=== PATIENT | female | born 1990 | race African-American/Black ===

== ENCOUNTER 2017-01-20 10:00 | Emergency (ER) | payer OTHER ==
[~2017-01-20] VITALS: Ht 170.2 cm; Wt 60.8 kg
[2017-01-20 10:04] VITALS: BP 142/80
--- NOTE | 2017-01-20 10:19 | NUR ---
PT PRESENTS TO ER W/C/O CHEST PAIN X1 DAY.HX OF HEART MURMUR.PT STATES SHE FEELS NAUSEOUS BUT DENIES VOMITTING; SKIN IS PINK/WARM/DRY; AAOX4 WITH EVEN AND STEADY GAIT; LUNGS CLEAR BL; HR EVEN AND REGULAR; PT DENIES ANY FEVER OR COUGH AT THIS TIME; PATIENT STATES PAIN OF 4/10 AT THIS TIME;EKG DONE;PATIENT POSITIONED FOR COMFORT; HOB ELEVATED; BEDRAILS UP X2; BED DOWN.ALL MONITORS IN PLACED;DR WALL AT BEDSIDE.
--- NOTE | 2017-01-20 10:27 | NUR ---
PT UNABLE TO GIVE URINE AT THIS TIME.
--- NOTE | 2017-01-20 10:30 | NUR ---
XRAY AT BEDSIDE.
--- NOTE | 2017-01-20 10:37 | NUR ---
LAB AT BEDSIDE.
[2017-01-20 10:58] LABS: BASOPHILS # (AUTO) 0.3 K/uL (0.00-0.22); BASOPHILS % (AUTO) 3.7 % (0.0-2.0); EOSINOPHILS # (AUTO) 0.1 K/uL (0-0.4); EOSINOPHILS % (AUTO) 0.6 % (0.0-4.0); HEMATOCRIT 41.8 % (36-48); HEMOGLOBIN 13.4 g/dL (12.0-16.0); LYMPHOCYTES # (AUTO) 1.6 K/uL (2.5-16.5); MEAN CORPUSCULAR HEMOGLOBIN 27 pg (27-31); MEAN CORPUSCULAR HGB CONC 32 g/dL (33-37); MEAN CORPUSCULAR VOLUME 85 fL (80-94); MONOCYTES # (AUTO) 0.7 K/uL (0.8-1.0); MONOCYTES % (AUTO) 8.1 % (1.7-9.3); NEUTROPHILS # (AUTO) 5.9 K/uL (1.8-7.7); NEUTROPHILS % (AUTO) 69.6 % (42.2-75.2); PLATELET COUNT (AUTO) 370 K/uL (140-450); RED BLOOD CELL COUNT(AUTO) 4.95 MIL/uL (4.20-5.40); RED CELL DISTRIBUTION WIDTH 13.6 % (11.6-13.7); WHITE BLOOD COUNT (AUTO) 8.6 K/uL (4.8-10.8)
[2017-01-20 11:02] LABS: CREATININE 0.8 mg/dL (0.6-1.3)
[2017-01-20 11:08] LABS: ALBUMIN 3.6 g/dL (3.4-5.0); TOTAL BILIRUBIN 1.3 mg/dL (0.0-1.0)
[2017-01-20 11:19] LABS: PROTHROMBIN TIME 11.2 secs (10.8-13.4)
[2017-01-20 11:42] VITALS: BP 130/80
== END 2017-01-20 11:41 | disposition home or self-care (01) ==
LOC: MED 10:00
DX: R07.89 Other chest pain (principal); R42 Dizziness and giddiness
CPT/HCPCS: 36415; 71010; 80053; 81025; 83880; 84484; 85025; 85610; 85730; 93005; 99285; Q0092

== ENCOUNTER 2017-03-30 11:03 | Inpatient (IN) | payer OTHER ==
[~2017-03-30] VITALS: Ht 170.2 cm; Wt 59.9 kg
--- NOTE | 2017-03-30 11:14 | NUR ---
Patient ambulated to bed 3. RN evaluating patient at bedside.
[2017-03-30 11:16] VITALS: BP 144/84
--- NOTE | 2017-03-30 11:20 | NUR ---
27F BIB SELF C/O VAGINAL BLEEDING, PINK, BRIGHT, PT STATES "ONLY WHEN I WIPE" X 3 DAYS; PT STATES NO CLOTTS, AND NOT HAVING TO USE TAMPONS DAILY AT THIS TIME; M2 A1; PT STATES NO PAIN, NO N/V/D AT THIS TIME; PT AA&OX4, BL LUNG SOUNDS CLEAR, RR EVEN/UNLABORED, SKIN IS WARM/DRY/INTACT WITH EVEN AND STEADY GAIT; PT RESTING IN BED WITH HOB ELEVATED AND IN LOWEST POSITION; POSITIONED FOR COMFORT; ER MD MADE AWARE OF STATUS. WILL CONTINUE TO MONITOR.
--- NOTE | 2017-03-30 11:40 | NUR ---
Dr. Cope evaluating patient at bedside.
--- NOTE | 2017-03-30 11:40 | NUR ---
YELENA BRYANT ACCOMPANIED ER MD DR. MAXWELL FOR FEMALE PELVIC EXAM
--- NOTE | 2017-03-30 11:44 | NUR ---
Patient taken to US via wheelchair by tech.
--- NOTE | 2017-03-30 12:03 | NUR ---
Patient returned from US. RN re-evaluating patient at bedside.
[2017-03-30 12:04] LABS: APPEARANCE,URINE HAZY (CLEAR); BILIRUBIN,URINE NEGATIVE (NEGATIVE); BLOOD, URINE 1+ (NEGATIVE); COLOR,URINE YELLOW (YELLOW); LEUKOCYTE ESTERASE ,URINE NEGATIVE (NEGATIVE); NITRITE, URINE NEGATIVE (NEGATIVE); PH,URINE 6.5 (5.0-9.0); UGLUCOSE NEGATIVE (NEGATIVE)
--- NOTE | 2017-03-30 12:18 | NUR ---
PHLEB at bedside for blood draw.
[2017-03-30 12:23] LABS: RBC,URINE 11-20 (MOD) /HPF (0-5); WBC,URINE 0-5 (RARE) /HPF (0-5)
[2017-03-30 12:42] LABS: BASOPHILS # (AUTO) 0.3 K/uL (0.00-0.22); BASOPHILS % (AUTO) 3.3 % (0.0-2.0); EOSINOPHILS # (AUTO) 0.1 K/uL (0-0.4); EOSINOPHILS % (AUTO) 1.1 % (0.0-4.0); HEMATOCRIT 39.7 % (36-48); HEMOGLOBIN 12.7 g/dL (12.0-16.0); LYMPHOCYTES # (AUTO) 1.1 K/uL (2.5-16.5); LYMPHOCYTES % (AUTO) 13.8 % (20.5-51.1); MEAN CORPUSCULAR HEMOGLOBIN 27 pg (27-31); MEAN CORPUSCULAR HGB CONC 32 g/dL (33-37); MEAN CORPUSCULAR VOLUME 85 fL (80-94); MONOCYTES # (AUTO) 0.7 K/uL (0.8-1.0); MONOCYTES % (AUTO) 8.5 % (1.7-9.3); NEUTROPHILS # (AUTO) 5.7 K/uL (1.8-7.7); NEUTROPHILS % (AUTO) 73.3 % (42.2-75.2); PLATELET COUNT (AUTO) 360 K/uL (140-450); RED BLOOD CELL COUNT(AUTO) 4.66 MIL/uL (4.20-5.40); RED CELL DISTRIBUTION WIDTH 13.5 % (11.6-13.7); WHITE BLOOD COUNT (AUTO) 7.9 K/uL (4.8-10.8)
--- NOTE | 2017-03-30 13:17 | NUR ---
PT APPEARS TO BE RESTING COMFORTABLY IN BED; RR EVEN/UNLABORED; POSITIONED FOR COMFORT; WILL CONTINUE TO MONITOR.
--- NOTE | 2017-03-30 14:06 | NUR ---
PT HR 53, RR EVEN/UNLABORED; ER MD DR. MAXWELL NOTIFIED; POSITIONED FOR COMFORT; WILL CONTINUE TO MONITOR.
[2017-03-30] MEDS ORDERED: ACETAMINOPHEN 325 MG TAB PO PRN (15:05)
[2017-03-30] MEDS ORDERED: MORPHINE SULFATE 2 MG/ML SYR IVP PRN (15:05)
[2017-03-30] MEDS ORDERED: ONDANSETRON 4 MG/2 ML VIAL IVP PRN (15:05)
--- NOTE | 2017-03-30 15:34 | NUR ---
Patient will be admitted to care of DR. ORTEZ. Admited to M/S. Will go to room 104B. Belongings list completed. Report to YELENA VALDERRAMA AND YELENA MARIE AT BEDSIDE.
[2017-03-30 15:50] VITALS: BP 105/50
--- NOTE | 2017-03-30 15:50 | NUR ---
RECEIVED REPORT FROM ER NURSE. PT DX: ABDOMINAL PAIN/VAGINAL BLEEDING, PINK, BRIGHT, "ONLY WHEN I WIPE" X3 DAYS. NO CLOTS. HX: OVERIAN CYST RIGHT OVARY. G6, P2, M2, A1. ADMITTED TO RULE OUT WHAT IS CAUSING PELVIC PAIN AND POSSIBILITY OF ECTOPIC . NKA AND NPO AT THIS TIME. AOX4. PT IS ABLE TO AMBULATE AND HAS INTACT SKIN. PT STABLE AND RESTING IN BED. VITAL SIGNS 97.9F, 76 HR, 105/50 B/P, 16RR, 100% SPO2 AND 6/10 PAIN LEVEL. BED IN LOWEST POSITION. CALL LIGHT WITHIN REACH. WILL CONTINUE TO MONITOR.
--- NOTE | 2017-03-30 16:05 | NUR ---
PT WAS GIVEN SANITARY PADS AND UNDERWEAR TO CONTROL BLEEDING. PT WAS ABLE TO CARE FOR SELF WITHOUT ASSISTANCE.
[2017-03-30] MEDS: NACL 0.9% 1,000 ML IV SCH (16:30)
--- NOTE | 2017-03-30 17:23 | NUR ---
PAGED DR. ORTEZ FOR ADMIT ORDERS. DR. WALKER STATE APPELLATE CLERK, PER DR. WALKER ORDER CONSULT WITH LABOR RELATIONS TEACHER.
--- NOTE | 2017-03-30 17:32 | NUR ---
CALLED DR. BA TO ASK HIM IF IT WAS OKAY FOR THE PATIENT TO HAVE DINNER. PER DR. BA PATIENT IS OKAY TO HAVE REGULAR DIET.
--- NOTE | 2017-03-30 17:35 | NUR ---
LEFT MESSAGE AT DIETARY FOR A REGULAR DIET TRAY. MEANWHILE PT RECEIVED TUNA SANDWICH, JELLO AND CRANBERRY JUICE.
--- NOTE | 2017-03-30 17:50 | NUR ---
PT RECEIVED REGULAR DIET TRY. PT STABLE AT THIS TIME. NO S/S OF RESPIRATORY DISTRESS OR DISCOMFORT. CALL LIGHT WITHIN REACH. BED IN LOWEST POSITION. WILL CONTINUE TO MONITOR.
--- NOTE | 2017-03-30 18:21 | NUR ---
CALLED DR. BA TO NOTIFY AND CONFIRM THAT HE WAS NOW THE ATTENDING DOCTOR.
--- NOTE | 2017-03-30 19:25 | NUR ---
PT ENDORSED TO SLOT FLOOR PERSON NURSE. PT STABLE AT THIS TIME. NO S/S OF RESPIRATORY DISTRESS OR DISCOMFORT. CALL LIGHT WITHIN REACH. BED IN LOWEST POSITION.
--- NOTE | 2017-03-30 19:26 | NUR ---
PATIENT IS CURRENTLY RESTING IN BED AWAKE ALERT ORIENTED. DENIES PAIN MODERATE AMOUNT OF BLEEDING NOTED TO HER PERIPAD.IVF INFUSING WELL IV SITE PATENT. CALL LIGHT WITHIN REACH WILL CONTINUE TO MONITOR.
[2017-03-30 20:00] VITALS: BP 102/52
--- NOTE | 2017-03-30 20:00 | NUR ---
Patient's Plan of Care was discussed and reviewed with MALLORY: JUAREZ
--- NOTE | 2017-03-30 21:15 | NUR ---
PATIENT IS CURRENTLY AWAKE WATCHING MOVIES ON HER PHONE.NEEDS MET.IVF INFUSING WELL.CALL LIGHT WITHIN REACH.
--- NOTE | 2017-03-30 21:55 | NUR ---
MD SMITH CAME AND SPOKE TO THE PATIENT AT BEDSIDE AND ANSWERED ALL OF HER QUESTIONS AND CONCERNS.
[2017-03-30] MEDS ORDERED: ZOLPIDEM 5 MG TAB PO PRN (22:25)
--- NOTE | 2017-03-30 23:47 | NUR ---
PATIENT COMPLAINS OF INSOMNIA WAS MEDICATED WITH SLEEPING PILL.
--- NOTE | 2017-03-30 23:49 | NUR ---
PATIENT WILL BE NPO AFTER MIDNIGHT SHE WILL BE HAVING A D&C PROCEDURE TOMORROW BY MD SMITH AND SHE KNOWS THAT SHE CANNOT DRINK OR EAT AFTER MIDNIGHT.
--- NOTE | 2017-03-30 23:58 | NUR ---
GAVE THE PATIENT A BLANKET.
[2017-03-31] MEDS: NACL 0.9% 1,000 ML IV SCH ×2 (01:02→03:55)
--- NOTE | 2017-03-31 01:35 | NUR ---
PATIENT IS CURRENTLY STABLE SLEEPING IN BED AT THIS TIME.NO SCD'S APPLIED PATIENT IS AMBULATORY AND AMBULATES WELL.
--- NOTE | 2017-03-31 03:00 | NUR ---
PATIENT IS CURRENTLY RESTING IN BED SLEEPING CALL LIGHT WITHIN REACH.
[2017-03-31 04:55] VITALS: BP 101/52
--- NOTE | 2017-03-31 04:57 | NUR ---
PATIENT IS CURRENTLY RESTING IN BED SLEEPING NEEDS MET WILL CONTINUE TO MONITOR.
[2017-03-31 06:13] LABS: HEMATOCRIT 37.8 % (36-48); HEMOGLOBIN 12.4 g/dL (12.0-16.0); MEAN CORPUSCULAR HEMOGLOBIN 28 pg (27-31); MEAN CORPUSCULAR HGB CONC 33 g/dL (33-37); MEAN CORPUSCULAR VOLUME 85 fL (80-94); PLATELET COUNT (AUTO) 330 K/uL (140-450); RED BLOOD CELL COUNT(AUTO) 4.44 MIL/uL (4.20-5.40); RED CELL DISTRIBUTION WIDTH 13.4 % (11.6-13.7); WHITE BLOOD COUNT (AUTO) 8.8 K/uL (4.8-10.8)
[2017-03-31 06:59] LABS: ALBUMIN 3.2 g/dL (3.4-5.0); ANION GAP 11.2 (8-16); CARBON DIOXIDE 27.8 mmol/L (21-32); CREATININE 0.8 mg/dL (0.6-1.3); TOTAL BILIRUBIN 0.8 mg/dL (0.0-1.0)
--- NOTE | 2017-03-31 07:01 | NUR ---
PATIENT IS CURRENTLY SLEEPING IN BED IS AWARE THAT SHE WILL BE TAKEN FOR PROCEDURE AT 0730.IVF INFUSING WELL IV SITE PATENT.
[2017-03-31 07:08] LABS: LYMPHOCYTES % (MANUAL) 47 % (20-46); MONOCYTES % (MANUAL) 7 % (5-12)
[2017-03-31 07:09] LABS: EOSINOPHILS % (MANUAL) 4 % (0-4)
[2017-03-31] MEDS ORDERED: LIDOCAINE 2% 100 MG/5 ML SYR IVP ONE (07:24)
[2017-03-31] MEDS ORDERED: PROPOFOL 200 MG/20 ML VIAL IV ONE (07:24)
[2017-03-31] MEDS ORDERED: SEVOFLURANE 250 ML BTL INH ONE (07:24)
--- NOTE | 2017-03-31 07:25 | NUR ---
ENDORSEMENT RECEIVED FROM DIRECT MARKETING MANAGER NURSE. PATIENT IS AWAKE, ALERT. RESPIRATION EVEN, UNLABOR. SKIN DRY AND WARM. IV PATENT AND INTACT. NO DISTRESS NOTED AT THIS TIME. PLAN OF CARE WAS DISCUSSED WITH PATIENT. BED AT LOW POSITION. OR NURSES AT BEDSIDE TRANSFERRING PATIENT.
[2017-03-31] MEDS ORDERED: MIDAZOLAM 2 MG/2 ML VIAL ONE (07:32)
--- NOTE | 2017-03-31 07:34 | NUR ---
PATIENT STABLE REPORT ENDORSED TO YELENA GUTIERREZ.OR HERE TO CAREER CONSULTANT THE PATIENT.
[2017-03-31] MEDS ORDERED: IBUPROFEN 800 MG TAB PO PRN (07:40)
[2017-03-31] MEDS ORDERED: ONDANSETRON 4 MG/2 ML VIAL IVP PRN ×2 (07:40→07:50)
[2017-03-31] MEDS ORDERED: MORPHINE SULFATE 4 MG/ML SYR IM/IVP PRN (07:40)
[2017-03-31] MEDS ORDERED: ACETAMINOPHEN/CODEINE 300/30MG 1 TAB PO PRN (07:40)
[2017-03-31] MEDS ORDERED: HYDROmorphone 1 MG/ML AMP IVP PRN (07:50)
[2017-03-31] MEDS ORDERED: HYDROmorphone PFS 2 MG/ML SYR ONE (08:25)
[2017-03-31] MEDS ORDERED: HYDROmorphone PFS 2 MG/ML SYR IVP PRN (08:40)
--- NOTE | 2017-03-31 08:53 | NUR ---
PATIENT HAS BEEN SCREENED AND CATEGORIZED LOW NUTRITION RISK. PATIENT WILL BE SEEN WITHIN 7 DAYS OF ADMISSION. 04/05/[address]
[2017-03-31 09:15] VITALS: BP 111/72
--- NOTE | 2017-03-31 09:15 | NUR ---
PATIENT WAS TRANSFERRED BACK TO THE UNIT. REPORT WAS GIVEN AT BEDSIDE. VS WAS TAKEN. PATIENT IS AWAKE, ALERT. DENIED PAIN AT THIS TIME. CALL LIGHT WITHIN REACH
--- NOTE | 2017-03-31 10:30 | NUR ---
PATIENT AWAKE, ALERT. RESPIRATION EVEN, UNLABOR ON ROOM AIR. PATIENT DENIED N/V, PAIN AFTER BREAKFAST. CRACKERS AND MILK WERE GIVEN TO THE PATIENT. CALL LIGHT WITHIN REACH
--- NOTE | 2017-03-31 12:29 | NUR ---
CM NOTE INITIAL REVIEW FAXED TO [facility] [phone] FALGUNI PH# [phone] RADHA PH# [phone]
--- NOTE | 2017-03-31 12:33 | NUR ---
DISCHARGE INSTRUCTION WAS GIVEN. PATIENT VERBALIZED UNDERSTANDING. IV WAS REMOVED, CATHETER INTACT, NO ACTIVE BLEEDING SEEN, PATIENT TOLERATED WELL. ID BAND WAS REMOVED. EXCUSE FROM WORK WAS GIVEN TO THE PATIENT. ALL BELONGING WAS TAKEN WITH THE PATIENT. PATIENT WAS ESCORTED OUT IN WHEELCHAIR BY STAFF. PATIENT IS STABLE AT THIS TIME.
== END 2017-03-31 12:30 | disposition home or self-care (01) | DRG 544 ==
LOC: MED 11:03 → MTU 15:06
PROVIDERS: ADMIT Internal Medicine; ATTEND Obstetrics & Gynecology
PROC: 10D17ZZ Extraction of Products of Conception, Retained, Via Natural or Artificial Opening (ICD-10-PCS; principal; 2017-03-31 07:30)
DX: O03.4 Incomplete spontaneous abortion without complication (principal); N93.9 Abnormal uterine and vaginal bleeding, unspecified
CPT/HCPCS: 36415; 76817; 80053; 81001; 81025; 84702; 85025; 86886; 86900; 86901; 87081; 87210; 99285; J1170; J2001; J2250; J2704; J7030; J7120; Q0092